=== PATIENT | female | born 1985 | race American Indian/Alaskan Native ===

== ENCOUNTER 2016-06-28 09:12 | Emergency (ER) | payer MEDICAID ==
[2016-06-28 09:27] VITALS: BP 143/91
[2016-06-28 09:57] LABS: Basophils % (Auto) 1.2 % (0.0-1.8); Eosinophils % (Auto) 0.6 % (0.0-4.3); Hematocrit 36.3 % (30.3-42.9); Hemoglobin 11.9 gm/dl (10.1-14.3); Mean Corpuscular HGB Conc 33 % (30-34); Mean Corpuscular Hemoglobin 25 pg (28-32); Mean Corpuscular Volume 77 fl (79-97); Platelet Count 326 K/mm3 (140-440); Red Blood Count 4.74 M/mm3 (3.65-5.03); Red Cell Distribution Width 16.3 % (13.2-15.2); White Blood Count 7.4 K/mm3 (4.5-11.0)
--- NOTE | 2016-06-28 10:12 | XRay Report ---
CHEST TWO VIEWS: 06/28/16 09:12:00 CLINICAL: Chest pain. COMPARISON: 06/17/15 FINDINGS: Stable cardiomegaly with an AICD lead in heart. Normal pulmonary vessels.Mild elevation of the right hemidiaphragm and opacification of the right costophrenic angle. This is probably scar which has developed since a small right pleural effusion on the last exam.The left lung is normally expanded and clear. IMPRESSION: Mild cardiomegaly but no CHF.
[2016-06-28 10:14] LABS: Anion Gap 21 mmol/L; BUN/Creatinine Ratio 24.44; Blood Urea Nitrogen 22 mg/dL (7-17); Calcium 9.4 mg/dL (8.4-10.2); Carbon Dioxide 24 mmol/L (22-30); Glucose 95 mg/dL (65-100); Potassium 3.7 mmol/L (3.6-5.0); Sodium 137 mmol/L (137-145)
--- NOTE | 2016-07-01 13:26 | ED Elopement Review ---
ED Pt Elopement review - Results review Lab results: Laboratory Tests 06/28/16 06/28/16 06/28/16 09:35 09:35 09:35 WBC 7.4 RBC 4.74 Hgb 11.9 Hct 36.3 MCV 77 L MCH 25 L MCHC 33 RDW 16.3 H Plt Count 326 Lymph % (Auto) 14.2 Murray % (Auto) 8.4 H Eos % (Auto) 0.6 Baso % (Auto) 1.2 Lymph # 1.0 L Murray # 0.6 Eos # 0.0 Baso # 0.1 Seg Neutrophils % 75.6 H Seg Neutrophils # 5.6 Sodium 137 Potassium 3.7 Chloride 96.0 L Carbon Dioxide 24 Anion Gap 21 BUN 22 H Creatinine 0.9 Estimated GFR > 60 BUN/Creatinine Ratio 24.44 Glucose 95 Calcium 9.4 Troponin T < 0.010 NT-Pro-B Natriuret Pep 648.3 H - Call Back decision Pt Call Back Decision: Call pt to return to ED SONY (CP h/o PE abn EKG)
== END 2016-06-28 09:40 | disposition left against medical advice (07) ==
LOC: ED 09:12
DX: R07.9 Chest pain, unspecified (principal); Z53.21 Procedure and treatment not carried out due to patient leaving prior to being seen by health care provider
CPT/HCPCS: 36415; 71020; 80048; 83880; 84484; 85025; 93005; 93010